=== PATIENT | female | born 1955 | race Caucasian/White ===

== ENCOUNTER → 2016-10-20 | Outpatient (REF) ==
[~2016-10-20] MED LIST: AMBIEN 10MG10 MG PO; ATIVAN 0.50.5 MG/TAB PO; BONINE25 MG PO; DITROPAN XL 5MG5 M1 PO; IMITREX100 MG PO; KOMBIGLYZE XR 11 TE1 PO; LANTUS SOLOS100 U/ML SQ; MULTIPLE VITAMI1 TAB PO; NEXIUM 40MG40 MG PO; PHENERGAN 25 TA25 MG PO; PRISTIQ 50 MG T50 MG PO; REQUIP2 MG PO; TOPROL XL 50MG50 MG PO; ULTRAM 50MG TAB50 MG PO; WELCHOL 625MG625 MG PO
== END ==
LOC: ZLAB.WCH 10:48
DX: Z01.89 Encounter for other specified special examinations (principal)

== ENCOUNTER → 2017-05-05 | Outpatient (REF) | LOC: ZLAB.WCH 18:08 | DX: Z01.89 Encounter for other specified special examinations (principal) ==

== ENCOUNTER → 2017-05-26 | Outpatient (CLI) | payer OTHER | LOC: MC.RAD 09:40 | DX: Z12.31 Encounter for screening mammogram for malignant neoplasm of breast (principal) ==

== ENCOUNTER → 2017-07-30 | Outpatient (CLI) | payer OTHER | LOC: COL.RAD 10:21 | DX: M25.551 Pain in right hip (principal) | CPT/HCPCS: J3301; Q9967 ==

== ENCOUNTER → 2018-05-06 | Outpatient (REF) | LOC: ZLAB.WCH 16:09 | DX: Z01.89 Encounter for other specified special examinations (principal) ==

== ENCOUNTER → 2019-01-02 | Outpatient (REF) | LOC: ZLAB.WCH 17:23 | DX: Z01.89 Encounter for other specified special examinations (principal) ==